=== PATIENT | female | born 1960 | race Caucasian/White ===

== ENCOUNTER 2020-05-08 07:24 | Day surgery (SDC) | payer OTHER ==
[2020-05-03 14:05] VITALS: BMI 31.6
[2020-05-08] MEDS ORDERED: ceFAZolin SODIUM 1 GM VIAL ONE (08:30)
[2020-05-08] MEDS ORDERED: GENTAMICIN SO4 80 MG/2 ML VIAL ONE (08:30)
[2020-05-08] MEDS ORDERED: PROPOFOL 20 ML ONE ×4 (09:40)
[2020-05-08] MEDS ORDERED: MIDAZOLAM HCL 2 MG/2 ML SINGLE DOSE VIAL ONE (09:40)
[2020-05-08] MEDS ORDERED: fentaNYL CITRATE 250 MCG/5 ML VIAL ONE (09:40)
[2020-05-08] MEDS ORDERED: ePHEDrine SULFATE 50 MG/1 ML AMPULE ONE (10:23)
[2020-05-08] MEDS ORDERED: DEXAMETHASONE SOD PHOSPHATE 4 MG/1 ML VIAL ONE (14:38)
[2020-05-08] MEDS ORDERED: ONDANSETRON 4 MG/2 ML VIAL ONE (14:38)
[2020-05-08] MEDS ORDERED: oxyCODONE HCL 5 MG TABLET PO PRN ×3 (15:24→15:40)
[2020-05-08] MEDS ORDERED: ONDANSETRON 4 MG/2 ML VIAL IVPUSH PRN (15:24)
[2020-05-08] MEDS ORDERED: PROMETHAZINE HCL 25 MG/1 ML VIAL IVPUSH PRN (15:24)
[2020-05-08] MEDS ORDERED: morphine CARPU-JECT 2 MG/1 ML DISP.SYRIN IVPUSH PRN (15:40)
[2020-05-08] MEDS ORDERED: ONDANSETRON 4 MG/2 ML VIAL IVPB PRN (15:40)
[2020-05-08] MEDS ORDERED: LACTATED RINGERS SOLUTION 1,000 ML IV SCH (15:45)
[2020-05-08] MEDS: CEFAZOLIN 1 GM/D5W 1 GM/50 ML BAG IVPB SCH (21:09)
[2020-05-08] MEDS ORDERED: FLUoxetine HCL 20 MG CAPSULE PO SCH (22:00)
[2020-05-09] MEDS: CEFAZOLIN 1 GM/D5W 1 GM/50 ML BAG IVPB SCH ×2 (02:08→09:12)
[2020-05-09 09:19] VITALS: BP 132/70; PULSE 80; TEMP 98.3
== END 2020-05-09 09:05 | disposition home or self-care (01) ==
LOC: FASU 07:24 → FM/S 17:17 → FASU 05-09 09:05
PROVIDERS: ATTEND Plastic Surgery
PROC: 0HRV0JZ Replacement of Bilateral Breast with Synthetic Substitute, Open Approach (ICD-10-PCS; 2020-05-08)
PROC: 0HBV0ZZ Excision of Bilateral Breast, Open Approach (ICD-10-PCS; 2020-05-08)
PROC: 0HPU0JZ Removal of Synthetic Substitute from Left Breast, Open Approach (ICD-10-PCS; principal; 2020-05-08 10:44)
PROC: 0HPT0JZ Removal of Synthetic Substitute from Right Breast, Open Approach (ICD-10-PCS; 2020-05-08 10:44)
DX: T85.44XA Capsular contracture of breast implant, initial encounter (principal); Y82.8 Other medical devices associated with adverse incidents; Y92.9 Unspecified place or not applicable
CPT/HCPCS: 88300-TC; 88305-TC; 94760